=== PATIENT | female | born 1945 | race African-American/Black ===

== ENCOUNTER 2016-11-18 04:32 | Emergency (ER) | payer MEDICARE, BC ==
[~2016-11-18] VITALS: Ht 152.4 cm; Wt 92.5 kg
[~2016-11-18 04:32] MED LIST: ACETIC ACID AS; ANTI10DR7 AS; ASPI-482 PO; ASPI325T8 PO; Aspirin PO; DILT180C2 PO; DILT30TA26 PO; FURO-69 PO; GLYB2.5T2 PO; INDO25CA PO; LEVO750T31 PO
[2016-11-18] MEDS ORDERED: HYDR-971 PO (04:53)
--- NOTE | 2016-11-18 04:54 | PHYS DOC ---
Past History Past Medical History: A-Fib, CHF, Diabetes, Hypertension, Hypothyroid, Other Additional Past Medical Histor: Gout Past Surgical History: Smoking: Non-smoker Alcohol Use: None Drug Use: None Social History Narrative: Lives alone Adult General HPI HPI Patient is a 71 year old female who presents with flare of her gout. She has chronic gout but last flare > 1 year ago. She noticed her left foot becoming swollen and painful-especially at the great toe. She was taking her indocin ( which is has) but "I wasn't taking it right." No other complaints. Review of Systems Review of Systems Constitutional: Denies fever or chills Respiratory: Denies cough or shortness of breath Cardiovascular: No chest pain GI: Denies abdominal pain, nausea, vomiting, bloody stools or diarrhea : Denies dysuria or hematuria Musculoskeletal: see HPI. Only the foot is involved. Integument: Denies rash or skin lesions Allergies Allergies Allergies Coded Allergies Type Severity Reaction Last Updated Verified codeine Allergy Intermediate 07/16/14 Yes diazepam Allergy Intermediate 07/16/14 Yes pentazocine Allergy Intermediate 07/16/14 Yes Physical Exam Physical Exam Constitutional: Well developed, well nourished, no acute distress, non-toxic appearance. Cardiovascular:Heart rate regular rhythm, no murmur Lungs & Thorax: Bilateral breath sounds clear to auscultation Skin: Warm, dry, no erythema, no rash. Extremities: slight swelling to dorsum of left foot. Pain at base of 1st MTP joint. No erythema. No skin changes. Neurologic: Alert and oriented X 3, normal motor function, normal sensory function, no focal deficits noted. Psychologic: Affect normal, judgement normal, mood normal. Current Patient Data Vital Signs reviewed Course & Med Decision Making Course & Med Decision Making Patient has indocin and instructed on how to take it. Rx for vicodin as well for pain. Dragon Disclaimer Dragon Disclaimer This chart was dictated in whole or in part using Voice Recognition software in a busy, high-work load, and often noisy Emergency Department environment. It may contain unintended and wholly unrecognized errors or omissions. Departure Departure: Impression: Primary Impression: Gout of left foot Disposition: 01 HOME, SELF-CARE Condition: GOOD Referrals: TAMARA SALES MD (PCP) Patient Instructions: Gout, [id number] PANTERA AGIULAR MD Nov 18, 2016 04:54
[2016-11-18] MEDS ORDERED: HYDROcodone/APAP 5/325MG 1 TAB TABLET PO ONE (05:15)
[2016-11-18 05:50] VITALS: BP 160/80
== END 2016-11-18 05:55 | disposition home or self-care (01) ==
LOC: ER 04:32
DX: M10.9 Gout, unspecified (principal); M79.672 Pain in left foot; I48.91 Unspecified atrial fibrillation; E11.9 Type 2 diabetes mellitus without complications; E03.9 Hypothyroidism, unspecified; I11.0 Hypertensive heart disease with heart failure; I50.9 Heart failure, unspecified; Z88.6 Allergy status to analgesic agent; Z88.4 Allergy status to anesthetic agent; Z88.8 Allergy status to other drugs, medicaments and biological substances
CPT/HCPCS: 99284